=== PATIENT | female | born 1980 | race Caucasian/White ===

== ENCOUNTER 2019-08-21 22:28 | Emergency (ER) | payer MEDICAID ==
[~2019-08-21] VITALS: Ht 152.4 cm; Wt 103.4 kg
--- NOTE | 2019-08-21 22:57 | NUR ---
PT BIB SPOUSE FOR R CHEST PAIN RADIATING TO THE R ARM 04/28;PRESSURE PAIN. PT STATES SHE WAS SITTING ON THE SOFA WHEN SHE STARTED FEELING R CHEST PAIN W/ HEADACHE. AAOX4. NO SOB. BREATHING EVENLY AND UNLABORED. PATIENT STATES SHE IS MORE COMFORTABLE LYING FLAT. CONNECTED TO MONITOR.
[2019-08-21] MEDS ORDERED: HYDROCODONE/APAP 5/325MG 1 EACH TABLET ONE (23:19)
[2019-08-21] MEDS ORDERED: NITROGLYCERIN PACKET 1 GM PACKET ONE (23:20)
[2019-08-21] MEDS ORDERED: ASPIRIN 81 MG TAB.CHEW ONE (23:20)
[2019-08-21] MEDS ORDERED: ACETAMINOPHEN ES 500 MG TABLET ONE (23:20)
[2019-08-21] MEDS: ASPIRIN 81 MG TAB.CHEW PO ONE (23:26)
[2019-08-21] MEDS: HYDROCODONE/APAP 5/325MG 1 EACH TABLET PO ONE (23:26)
[2019-08-21] MEDS: ACETAMINOPHEN ES 500 MG TABLET PO ONE (23:27)
--- NOTE | 2019-08-21 23:30 | NUR ---
XRAY AT BEDSIDE
[2019-08-21] MEDS: NITROGLYCERIN PACKET 1 GM PACKET TD ONE (23:40)
--- NOTE | 2019-08-21 23:44 | NUR ---
seen And evaluated by
[2019-08-21 23:54] LABS: BASOPHILS % (AUTO) 0.5 % (0.0-2.0); EOSINOPHILS % (AUTO) 3.5 % (0.0-6.0); HEMATOCRIT 39 % (33-45); HEMOGLOBIN 12.6 g/dL (11.5-14.8); LYMPHOCYTES % (AUTO) 32.3 % (20.0-44.0); MEAN CORPUSCULAR HGB CONC 32 g/dl (31.0-36.0); MEAN CORPUSCULAR VOLUME 79 fL (82-100); MONOCYTES # (AUTO) 0.6 /CMM (0.1-1.30); MONOCYTES % (AUTO) 6.6 % (2.0-12.0); NEUTROPHILS # (AUTO) 5.3 /CMM (1.8-8.9); NEUTROPHILS % (AUTO) 57.1 % (43.0-81.0); PLATELET COUNT (AUTO) 254 /CMM (150-450); RED BLOOD CELL COUNT(AUTO) 4.95 MIL/uL (4.0-5.2); WHITE BLOOD COUNT (AUTO) 9.2 K/uL (4.3-11.0)
[2019-08-22 00:01] LABS: CALCIUM, SERUM 9.8 mg/dL (8.5-10.1); CARBON DIOXIDE 30 mmol/L (21-32); CHLORIDE 102 mmol/L (98-107); CREATININE 0.8 mg/dL (0.6-1.3); GLUCOSE 108 mg/dL (74-106); SODIUM SERUM 137 mmol/L (136-145); UREA NITROGEN, BLOOD 12 mg/dL (7-18)
[2019-08-22 00:14] LABS: ALANINE AMINOTRANSFERASE 15 U/L (12-78); ALBUMIN 3.8 g/dL (3.4-5.0); ALKALINE PHOSPHATASE 143 U/L (46-116); ASPARTATE AMINOTRANSFERASE 16 U/L (15-37); B-TYPE NATRIURETIC PEPTIDE 22 PG/ML (0-125); BILIRUBIN,TOTAL 0.3 mg/dL (0.2-1.0)
[2019-08-22] MEDS ORDERED: oxyCODONE/APAP (5/325 MG) 1 UDTAB TABLET ONE (01:14)
[2019-08-22] MEDS: oxyCODONE/APAP (5/325 MG) 1 UDTAB TABLET PO ONE (01:15)
--- NOTE | 2019-08-22 01:23 | NUR ---
PATIENT AND SPOUSE UNDERSTANDS THAT REPEAT TROPONIN WILL BE DRAWN AT 0248
--- NOTE | 2019-08-22 02:53 | NUR ---
TIME STUDY OBSERVER AT BEDSIDE FOR REDRAW OF TROPONIN
--- NOTE | 2019-08-22 03:33 | NUR ---
Patient discharged to home in stable condition. Written and verbal after care instructions given. Patient verbalizes understanding of instruction.
[2019-08-22 03:34] VITALS: BP 113/65
--- NOTE | 2019-08-22 03:34 | NUR ---
Patient given prescription and verbalizes understanding. Patient is ambulatory with a steady gait.
== END 2019-08-22 03:35 | disposition home or self-care (01) ==
LOC: ER 22:30
DX: G44.209 Tension-type headache, unspecified, not intractable (principal); R07.89 Other chest pain; I10 Essential (primary) hypertension
CPT/HCPCS: 36415; 71045-TC; 80048-TC; 80076-TC; 83880; 84484-TC; 85025-TC

== ENCOUNTER 2021-06-24 21:12 | Emergency (ER) | payer MEDICAID ==
[~2021-06-24] VITALS: Ht 152.4 cm; Wt 104.3 kg
--- NOTE | 2021-06-24 22:15 | NUR ---
PATIENT BIBS C/O HITTING BACK OF HEAD WITH NECK PAIN FOR THE PAST DAY. PT +NAUSEA LEFT LEG SWELLING X 1 DAY NO TRUAMA OR PAIN. PATIENT IS A/O X 4, RR EVEN AND UNLABORED NO SOB NOTED. PATIENT CONNECTED TO MONITORS.
[2021-06-24] MEDS ORDERED: IBUPROFEN 400 MG TABLET ONE (22:24)
[2021-06-24] MEDS: IBUPROFEN 400 MG TABLET PO ONE (22:28)
--- NOTE | 2021-06-24 23:10 | NUR ---
US AT BEDSIDE
[2021-06-24] MEDS ORDERED: IBUP-1957 PO (23:33)
--- NOTE | 2021-06-24 23:41 | NUR ---
Patient discharged to home in stable condition. Written and verbal after care instructions given. Patient verbalizes understanding of instruction.
[2021-06-24 23:51] VITALS: BP 148/82
== END 2021-06-24 23:52 | disposition home or self-care (01) ==
LOC: ER 21:22
DX: M79.605 Pain in left leg (principal); R51.9 Headache, unspecified; I10 Essential (primary) hypertension; Z79.899 Other long term (current) drug therapy
CPT/HCPCS: 93971-TC

== ENCOUNTER 2022-11-27 09:29 | Emergency (ER) | payer MEDICAID ==
[~2022-11-27] VITALS: Ht 152.4 cm; Wt 99.8 kg
[~2022-11-27 09:29] MED LIST: IBUP-1957 PO
[2022-11-27] MEDS ORDERED: ACETAMINOPHEN ES 500 MG TABLET PO ONE (10:30)
[2022-11-27 10:48] LABS: BASOPHILS % (AUTO) 0.4 % (0.0-2.0); EOSINOPHILS % (AUTO) 5.5 % (0.0-6.0); HEMATOCRIT 40 % (33-45); HEMOGLOBIN 12.8 g/dL (11.5-14.8); LYMPHOCYTES # (AUTO) 1.5 K/uL (0.8-4.8); LYMPHOCYTES % (AUTO) 30.5 % (20.0-44.0); MEAN CORPUSCULAR HGB CONC 32 g/dl (31.0-36.0); MEAN CORPUSCULAR VOLUME 85 fL (82-100); MONOCYTES # (AUTO) 0.3 K/uL (0.1-1.30); MONOCYTES % (AUTO) 6.9 % (2.0-12.0); NEUTROPHILS # (AUTO) 2.8 K/uL (1.8-8.9); NEUTROPHILS % (AUTO) 56.7 % (43.0-81.0); PLATELET COUNT (AUTO) 204 K/uL (150-450); RED BLOOD CELL COUNT(AUTO) 4.65 MIL/uL (4.0-5.2); WHITE BLOOD COUNT (AUTO) 4.9 K/uL (4.3-11.0)
[2022-11-27] MEDS ORDERED: ACETAMINOPHEN ES 500 MG TABLET ONE (10:59)
--- NOTE | 2022-11-27 11:00 | NUR ---
IV ACCESS ON R FA #20
[2022-11-27 11:07] LABS: CALCIUM, SERUM 9.2 mg/dL (8.5-10.1); CARBON DIOXIDE 23 mmol/L (21-32); CHLORIDE 107 mmol/L (98-107); CREATININE 0.5 mg/dL (0.6-1.3); GLUCOSE 102 mg/dL (74-106); POTASSIUM 3.8 mmol/L (3.5-5.1); SODIUM SERUM 141 mmol/L (136-145); UREA NITROGEN, BLOOD 11 mg/dL (7-18)
[2022-11-27 11:25] LABS: ALANINE AMINOTRANSFERASE 12 U/L (12-78); ALBUMIN 3.8 g/dL (3.4-5.0); ALKALINE PHOSPHATASE 139 U/L (46-116); BILIRUBIN,DIRECT 0.2 mg/dL (0.0-0.2); BILIRUBIN,TOTAL 0.5 mg/dL (0.2-1.0); TOTAL PROTEIN, SERUM 7.6 g/dL (6.4-8.2)
[2022-11-27 11:38] LABS: ASPARTATE AMINOTRANSFERASE 20 U/L (15-37)
--- NOTE | 2022-11-27 12:11 | NUR ---
Patient discharged to home in stable condition. Written and verbal after care instructions given. Patient verbalizes understanding of instruction.
[2022-11-27 12:12] VITALS: BP 138/81
== END 2022-11-27 12:12 | disposition home or self-care (01) ==
LOC: ER 09:37
DX: R51.9 Headache, unspecified (principal); I10 Essential (primary) hypertension
CPT/HCPCS: 36415; 70450-TC; 80048-TC; 80076-TC; 83880; 84484-TC; 85025-TC